=== PATIENT | female | born 1960 | race Asian ===

== ENCOUNTER 2018-12-24 05:50 | Inpatient (IN) | payer OTHER ==
[2018-12-24] MEDS: GABAPENTIN 300 MG CAP PO ×2 (06:35→20:20)
[2018-12-24] MEDS: DEXAMETHASONE 1 MG TAB PO (06:35)
[2018-12-24] MEDS ORDERED: TRANEXAMIC ACID 1GM/100ML(PMX) 100 ML (06:52)
[2018-12-24] MEDS ORDERED: SUCCINYLCHOLINE CHLORIDE 100 MG/5 ML SYG IV (07:00)
[2018-12-24] MEDS: CEFAZOLIN 2 GM/50 ML (PMX) 50 ML IVPB (07:01)
[2018-12-24] MEDS: TRANEXAMIC ACID 1GM/100ML(PMX) 100 ML IVPB (07:05)
[2018-12-24] MEDS ORDERED: ROCURONIUM 50 MG INJ (07:05)
[2018-12-24] MEDS ORDERED: PROPOFOL 20 ML (07:05)
[2018-12-24] MEDS ORDERED: FENTAnyl 50 MCG/ML VIAL ×2 (07:06)
[2018-12-24] MEDS ORDERED: MIDAZOLAM 1 MG/ML 2 ML INJ (07:06)
[2018-12-24] MEDS ORDERED: HETASTARCH 6% NACL 500 ML (07:29)
[2018-12-24] MEDS ORDERED: CA CHLORIDE 10% 10 ML SYRINGE (07:34)
[2018-12-24] MEDS ORDERED: THROMBIN (BOVINE) 5,000 UNIT VIAL TP (07:34)
[2018-12-24] MEDS ORDERED: EPHEDrine 25 MG/5 ML SYG ×2 (08:01→08:48)
[2018-12-24] MEDS ORDERED: PHENYLephrine (100 MCG/ML) 10ML SYG (08:02)
[2018-12-24] MEDS ORDERED: DEXAMETHASONE 4 MG/ML 5 ML INJ (08:02)
[2018-12-24] MEDS ORDERED: METOCLOPRAMIDE 10 MG INJ (08:02)
[2018-12-24] MEDS ORDERED: ONDANSETRON 4 MG INJ (08:02)
[2018-12-24] MEDS ORDERED: KETOROLAC 30 MG INJ (08:02)
[2018-12-24] MEDS ORDERED: SUGAMMADEX SODIUM 200 MG/2 ML VIAL IV (08:04)
[2018-12-24] MEDS ORDERED: ROPIVACAINE 0.5 % 30 ML VIAL (08:18)
[2018-12-24] MEDS ORDERED: HYDROmorphONE 1 MG/5 ML IV SYRINGE IV ×3 (08:30)
[2018-12-24] MEDS ORDERED: OXYCODONE/ACETAMINOPHEN (5/325) TAB PO ×2 (08:30)
[2018-12-24] MEDS ORDERED: hydrALAzine 20 MG INJ IV (08:30)
[2018-12-24] MEDS ORDERED: ALBUTEROL 0.083% (NEB) 2.5 MG/3 ML AMP HHN (08:30)
[2018-12-24] MEDS ORDERED: ONDANSETRON 4 MG INJ IV ×3 (08:30→09:30)
[2018-12-24] MEDS ORDERED: NALBUPHINE HCL (10 MG/1 ML) INJ IV (08:30)
[2018-12-24] MEDS ORDERED: NALOXONE (0.4 MG/ML) INJ IV (08:30)
[2018-12-24] MEDS ORDERED: FENTAnyl 50 MCG/ML VIAL IV ×3 (08:30)
[2018-12-24] MEDS ORDERED: EPHEDrine 25 MG/5 ML SYG IV (08:30)
[2018-12-24] MEDS ORDERED: DIPHENHYDRAMINE 50 MG INJ IV ×3 (08:30→09:30)
[2018-12-24] MEDS ORDERED: HYDROmorphONE 0.5 MG/0.5 ML SYG IV ×2 (08:30)
[2018-12-24] MEDS ORDERED: HYDROCODONE/APAP (5/325) TAB PO (08:30)
[2018-12-24] MEDS ORDERED: ACETAMINOPHEN 500 MG TAB PO (08:30)
[2018-12-24] MEDS ORDERED: METOCLOPRAMIDE 10 MG INJ IV (08:30)
[2018-12-24] MEDS ORDERED: LABETALOL HCL 20MG INJ IV (08:30)
[2018-12-24] MEDS ORDERED: MEPERIDINE 25 MG INJ IV (08:30)
[2018-12-24] MEDS ORDERED: ALBUMIN HUMAN 5% 250 ML (08:48)
[2018-12-24] MEDS: SOD CHLORIDE 0.9% 100 ML, TRANEXAMIC ACID 3,000 MG IRR (08:58)
[2018-12-24] MEDS: BUPIVACAINE 0.5% (SDV) 30 ML, morphine SULFATE (PF) 8 MG, EPINEPHrine 0.3 MG, KETOROLAC... IRR (09:01)
[2018-12-24] MEDS ORDERED: HYDROmorphONE 1 MG/ML SYG IV (09:30)
[2018-12-24] MEDS: ACETAMINOPHEN 1000MG/100ML IV 100 ML IVPB ×2 (09:30→17:18)
[2018-12-24] MEDS ORDERED: NACL 0.9% 3 ML SYG IV (09:30)
[2018-12-24 09:50] LABS: ADD MAN DIFF? NO
[2018-12-24 09:54] LABS: WHITE BLOOD COUNT 9.6 10^3/ul (4.8-10.8)
[2018-12-24 09:54] LABS: BASOPHILS % 0.2 % (0.0-2.0); EOSINOPHILS % 0.2 % (0.0-7.0); HEMATOCRIT 30.5 % (37.0-47.0); HEMOGLOBIN 9.7 g/dl (12.0-16.0); LYMPHOCYTES % 10.8 % (15.0-51.0); MEAN CORPUSCULAR HGB CONC 31.8 g/dl (32.0-37.0); MEAN CORPUSCULAR VOLUME 91.3 fl (82.0-101.0); MEAN PLATELET VOLUME 8.8 fl (7.4-10.4); MONOCYTE # 0.4 10^3/ul (0.3-0.9); MONOCYTES % 3.6 % (0.0-11.0); NEUTROPHIL # 8.1 10^3/ul (1.6-7.5); NEUTROPHILS % 84.5 % (39.0-77.0); PLATELET COUNT 229 10^3/UL (140-415); RED BLOOD COUNT 3.34 10^6/ul (4.20-5.40); RED CELL DISTRIBUTION WIDTH 13.2 % (11.5-14.5)
[2018-12-24] MEDS: LACTATED RINGER'S 1,000 ML IV ×2 (10:42→20:20)
[2018-12-24] MEDS: DEXAMETHASONE 2 MG TAB PO ×2 (12:00→17:18)
[2018-12-24] MEDS ORDERED: oxyCODONE 5 MG TAB PO ×2 (12:00)
[2018-12-24] MEDS: CEFAZOLIN 1 GM/50 ML (PMX) 50 ML IVPB ×2 (14:28→22:23)
[2018-12-24] MEDS: SENNA/DOCUSATE NA (8.6MG/50MG) TAB PO (20:21)
[2018-12-24] MEDS ORDERED: MAGNESIUM HYDROXIDE 30ML CUP PO (21:00)
[2018-12-24] MEDS ORDERED: ZOLPIDEM 5 MG TAB PO (21:00)
[2018-12-25] MEDS: DEXAMETHASONE 2 MG TAB PO ×2 (00:14→06:03)
[2018-12-25] MEDS: ACETAMINOPHEN 1000MG/100ML IV 100 ML IVPB (00:53)
[2018-12-25] MEDS: oxyCODONE 5 MG TAB PO ×2 (00:57→08:49)
[2018-12-25 05:05] LABS: ADD MAN DIFF? NO
[2018-12-25 05:06] LABS: ABNORMAL IP MESSAGE 1; BASOPHILS % 0.2 % (0.0-2.0); HEMATOCRIT 29.3 % (37.0-47.0); HEMOGLOBIN 9.4 g/dl (12.0-16.0); LYMPHOCYTES # 0.9 10^3/ul (0.8-2.9); LYMPHOCYTES % 7.2 % (15.0-51.0); MEAN CORPUSCULAR HGB CONC 32.1 g/dl (32.0-37.0); MEAN CORPUSCULAR VOLUME 90.4 fl (82.0-101.0); MEAN PLATELET VOLUME 8.9 fl (7.4-10.4); MONOCYTE # 1.6 10^3/ul (0.3-0.9); MONOCYTES % 13.1 % (0.0-11.0); NEUTROPHIL # 9.5 10^3/ul (1.6-7.5); NEUTROPHILS % 79.2 % (39.0-77.0); PLATELET COUNT 241 10^3/UL (140-415); RED BLOOD COUNT 3.24 10^6/ul (4.20-5.40); RED CELL DISTRIBUTION WIDTH 13.2 % (11.5-14.5)
[2018-12-25] MEDS: LACTATED RINGER'S 1,000 ML IV ×2 (05:08→14:22)
[2018-12-25 05:18] LABS: POSITIVE DIFF @See below
[2018-12-25] MEDS: CEFAZOLIN 1 GM/50 ML (PMX) 50 ML IVPB (06:03)
[2018-12-25] MEDS: LEVOTHYROXINE 112 MCG TAB PO (06:03)
[2018-12-25] MEDS: ESTRADIOL 1 MG TAB PO (08:47)
[2018-12-25] MEDS: VENLAFAXINE (XR) 75 MG CAP PO (08:47)
[2018-12-25] MEDS: SENNA/DOCUSATE NA (8.6MG/50MG) TAB PO (08:48)
[2018-12-25] MEDS: ATENOLOL 100 MG TAB PO (08:48)
[2018-12-25] MEDS: ASPIRIN (EC) 325 MG TAB PO (08:48)
[2018-12-25] MEDS ORDERED: DIPHENHYDRAMINE 25 MG CAP ×2 (11:19→13:16)
[2018-12-25] MEDS: MEDROXYPROGESTERONE 2.5 MG TAB PO (13:01)
[2018-12-25] MEDS: HYDROCODONE/APAP (5/325) TAB PO ×2 (13:17→18:39)
[2018-12-25] MEDS ORDERED: HYDROCODONE/APAP (5/325) TAB PO (13:30)
[2018-12-26] MEDS ORDERED: MAGNESIUM HYDROXIDE 30ML CUP PO (21:00)
== END 2018-12-25 18:55 | disposition home or self-care (01) | DRG 470 ==
LOC: REC 05:50 → MS1 10:55
PROVIDERS: Orthopaedic Surgery
PROC: 0SRB04A Replacement of Left Hip Joint with Ceramic on Polyethylene Synthetic Substitute, Uncemented, Open Approach (ICD-10-PCS; principal; 2018-12-24 07:00)
DX: M16.12 Unilateral primary osteoarthritis, left hip (principal); E03.9 Hypothyroidism, unspecified; I10 Essential (primary) hypertension
CPT/HCPCS: 71045; 72170; 73530; 85025; 86999; 87086; 88304; 88311; 97116; 97161